=== PATIENT | female | born 1995 | race Caucasian/White ===

== ENCOUNTER → 2017-10-02 | Outpatient (CLI) | payer BC | END | disposition home or self-care (01) | LOC: CDC 15:57 | DX: R94.31 Abnormal electrocardiogram [ECG] [EKG] (principal); Z00.01 Encounter for general adult medical examination with abnormal findings; R53.83 Other fatigue; R07.89 Other chest pain; N92.0 Excessive and frequent menstruation with regular cycle | CPT/HCPCS: 93000 ==